=== PATIENT | male | born 1995 | race Caucasian/White ===

== ENCOUNTER 2021-04-21 15:01 | Emergency (ER) | payer BC, SELFPAY ==
--- NOTE | ~2021-04-21 | XR_ITS ---
EXAMINATION: XR hip RT min 3V w AP pelvis DATE: 04/21/2021 15:36 INDICATION: Right hip injury. TECHNIQUE: An anteroposterior pelvis and 3 views of right hip were obtained. COMPARISON: None. FINDINGS: Bone alignment is normal. No fracture. Joint spaces are well maintained. IMPRESSION: 1. No fracture. Reviewed, dictated and finalized at location B. IMPRESSION: 1. No fracture.
[2021-04-21 15:10] VITALS: BP 125/55; PULSE 79; RESP 20; TEMP 37.1; O2SAT 100
--- NOTE | 2021-04-21 17:04 | ED.LOWEXIN ---
HPI - Extremity Injury (Lower) General Chief Complaint: Extremity Injury, Lower Stated Complaint: R leg injury Time Seen by Provider: 04/21/21 16:28 History of Present Illness HPI Narrative: Patient is a 26-year-old male who presents ER with right hip pain. Reports he was playing flag football when he had another individual and then collided with a wall. He struck his right hip. This occurred 5 days ago. He has been able to walk without issue. Pain persist. He has tried no oral pain medication. No numbness or tingling to lower extremity. No deformity. Related Data Home Medications Medication Instructions Recorded Confirmed No Home Medications 04/21/21 04/21/21 Allergies Allergy/AdvReac Type Severity Reaction Status Date / Time No Known Allergies Allergy Verified 04/21/21 16:27 Review of Systems Review of Systems: All systems reviewed & are unremarkable except as noted in HPI and below Constitutional: Constitutional: Denies chills, Denies fever(s) and Denies weakness Musculoskeletal: Musculoskeletal: Denies back pain, Reports arthralgias, Denies joint swelling and Denies muscle cramps Neurologic: Denies syncope, Denies focal weakness and Denies numbness PMFSH Past Medical History Medical History (Updated 04/21/21 @ 17:08 by Skinny Hurt MD) Healthy adult male Surgical History Surgical History (Updated 04/21/21 @ 17:05 by Skinny Hurt MD) No pertinent past surgical history Social History Social History Gender identity (if verbalized by the patient): Male Exam Narrative: GENERAL: Well-appearing, well-nourished, and in no acute distress. HEAD: Normocephalic, atraumatic. CHEST: Clear to auscultation. No respiratory distress. HEART: Regular rate and rhythm. Normal peripheral pulses. ABDOMEN: Soft, nontender, nondistended. EXTREMITIES: Normal range of motion. Normal strength of the right lower extremity. SKIN: Warm, dry, no rash. Tiny area of bruising over the right lateral hip no larger than a shine. NEURO: No focal deficits. Alert and oriented x3. PSYCH: Normal mood and affect. Course Course Emergency Course: Informed results. Discharge home. Recommend ibuprofen as needed for pain. Vital Signs Vital signs: Vital Signs Temperature 98.7 F 04/21/21 15:10 Pulse Rate 79 04/21/21 15:10 Respiratory Rate 20 04/21/21 15:10 Blood Pressure 125/55 L 04/21/21 15:10 Pulse Oximetry 100 04/21/21 15:10 Temperature 98.7 F 04/21/21 15:10 Pulse Rate 79 04/21/21 15:10 Respiratory Rate 20 04/21/21 15:10 Blood Pressure 125/55 L 04/21/21 15:10 Pulse Oximetry 100 04/21/21 15:10 MDM - Extremity Injury (Lower) Imaging Data Radiologist's impression: ITS Impressions Hip/Pelvis X-Ray 04/21/21 15:38 IMPRESSION: 1. No fracture. Discharge Plan Discharge Clinical Impression: Contusion of hip Patient Disposition: Home, Self-Care Condition: Stable Instructions: Contusion in Adults (ED) Additional Instructions: Return to the ER if you have chest pain or shortness of breath, you cannot keep down food or water, you lose consciousness, you have additional concerns. Prescriptions: New ibuprofen 600 mg tablet 600 mg PO TID Qty: 14 RF: 0 No Action No Home Medications RF: 0 Follow-up/Referrals: Amadeo Domingo MD [Physician] - 1 Week PHYSICIAN,CAT SITTER [Primary Care Provider] -
== END 2021-04-21 17:47 | disposition home or self-care (01) ==
PROVIDERS: Emergency Provider Emergency Medicine
DX: S70.01XA Contusion of right hip, initial encounter (principal); W51.XXXA Accidental striking against or bumped into by another person, initial encounter; Y93.62 Activity, american flag or touch football
CPT/HCPCS: 73502; 99283